=== PATIENT | male | born 1985 | race Caucasian/White ===

== ENCOUNTER 2021-10-14 22:54 | Emergency (ER) | payer SELFPAY ==
[~2021-10-14] VITALS: Ht 170.2 cm; Wt 82.2 kg
[~2021-10-14 22:54] MED LIST: AMOXICILLIN875 MG PO; BACTRIM DS1 TAB PO; GENTAMICIN15 ML/BTL OP; KEFLEX250 MG PO; LORTAB 10 PO; LORTAB5 PO; NAPROSYN375 MG PO; NO CURRENT MEDS; SEPTRA DS1 TAB OR; ULTRAM50 M1 PO; VANCOMYCIN HCL1 GM IV
[2021-10-14 23:32] LABS: IMMATURE GRANULOCYTES 0.1 % (0.0-5.0); MEAN CELL VOLUME 86.8 fL CALC (80.0-100.0); MEAN CORPUSCULAR HGB 28.5 pG CALC (26.0-32.0); MEAN CORPUSCULAR HGB CONC 32.9 g/dL CAL (32.0-36.0); NEUT# 3.29 thou/uL (1.82-7.42); RED BLOOD COUNT 5.01 mill/uL (4.70-6.10); RED CELL DISTRI WIDTH 13.3 % (11.5-15.5)
[2021-10-14 23:33] LABS: HEMATOCRIT 43.5 % (39.0-50.0); HEMOGLOBIN 14.3 g/dl (14.0-18.0)
[2021-10-14 23:47] LABS: ANION GAP 13 (6-22 (CALC)); BUN 18 mg/dL (9-20); BUN/CREATININE RATIO 16 (12-20 (CALC)); CARBON DIOXIDE 25 mmol/l (22-30); CHLORIDE 106 mmol/l (95-108); CREATININE 1.1 mg/dL (0.7-1.3); GFR FOR AFR.AMER. > 60 ML/MIN (>=60 (CALC)); GFR OTHER RACES > 60 ML/MIN (>=60 (CALC)); POTASSIUM 3.9 mmol/l (3.5-5.1); SGOT/AST 39 u/l (17-59); SODIUM 141 mmol/l (137-146); TOTAL PROTEIN 7.8 g/dL (6.3-8.2)
[2021-10-15 00:14] LABS: ALBUMIN 4.3 g/dL (3.2-5.0); ALKALINE PHOSPHATASE 64 u/l (38-126); BILIRUBIN, TOTAL 0.5 mg/dL (0.0-1.4)
[2021-10-15] MEDS ORDERED: AMOXICILLIN500 MG PO (01:16)
[2021-10-15] MEDS ORDERED: ULTRAM50 M1 PO (01:16)
[2021-10-15 02:06] VITALS: BP 131/86
[2021-10-16] MEDS ORDERED: HYDROCO/APAP1 TA9 PO (13:06)
[2021-10-17] MEDS ORDERED: HYDROCO/APAP1 TA9 PO (10:29)
== END 2021-10-15 02:06 | disposition home or self-care (01) | DRG 605 ==
LOC: ED 22:54
PROVIDERS: Emergency Medicine
PROC: 0HQKXZZ Repair Right Lower Leg Skin, External Approach (ICD-10-PCS; principal; 2021-10-15)
DX: S81.811A Laceration without foreign body, right lower leg, initial encounter (principal); S43.401A Unspecified sprain of right shoulder joint, initial encounter; S00.83XA Contusion of other part of head, initial encounter; F17.210 Nicotine dependence, cigarettes, uncomplicated; V13.4XXA Pedal cycle driver injured in collision with car, pick-up truck or van in traffic accident, initial encounter; Y93.55 Activity, bike riding

== ENCOUNTER 2021-10-16 11:14 | Emergency (ER) | payer SELFPAY ==
[~2021-10-16] VITALS: Ht 185.4 cm; Wt 81.8 kg
[~2021-10-16 11:14] MED LIST changes: +AMOXICILLIN500 MG PO
[2021-10-16 11:51] VITALS: BP 142/82
[2021-10-16] MEDS ORDERED: HYDROCO/APAP1 TA9 PO (13:06)
[2021-10-17] MEDS ORDERED: HYDROCO/APAP1 TA9 PO (10:29)
== END 2021-10-16 14:04 | disposition home or self-care (01) | DRG 950 ==
LOC: ED 11:14
DX: S81.811D Laceration without foreign body, right lower leg, subsequent encounter (principal); X58.XXXD Exposure to other specified factors, subsequent encounter; F17.200 Nicotine dependence, unspecified, uncomplicated

== ENCOUNTER 2021-10-24 13:40 | Emergency (ER) | payer SELFPAY ==
[~2021-10-24] VITALS: Ht 185.4 cm; Wt 80.0 kg
[~2021-10-24 13:40] MED LIST changes: +HYDROCO/APAP1 TA9 PO
[2021-10-24] MEDS ORDERED: CEPHALEXIN500 M1 PO ×2 (14:13→14:53)
[2021-10-24] MEDS ORDERED: BACTRIM DS1 TAB PO (14:13)
[2021-10-24] MEDS ORDERED: HYDROCO/APAP1 TA9 PO ×2 (14:13→14:53)
[2021-10-24 14:37] VITALS: BP 145/76
== END 2021-10-24 15:10 | disposition home or self-care (01) | DRG 950 ==
LOC: ED 13:40
DX: S81.811D Laceration without foreign body, right lower leg, subsequent encounter (principal); X58.XXXD Exposure to other specified factors, subsequent encounter; F17.200 Nicotine dependence, unspecified, uncomplicated

== ENCOUNTER 2022-07-08 10:58 | Emergency (ER) | payer SELFPAY ==
[~2022-07-08] VITALS: Ht 185.4 cm; Wt 83.9 kg
[~2022-07-08 10:58] MED LIST changes: +CEPHALEXIN500 M1 PO
[2022-07-08 11:06] VITALS: BP 146/86
[2022-07-08 11:15] VITALS: BP 145/88
[2022-07-08 11:30] VITALS: BP 145/92
[2022-07-08 13:30] VITALS: BP 145/92
== END 2022-07-08 13:31 | disposition home or self-care (01) | DRG 313 ==
LOC: ED 10:58
DX: R07.89 Other chest pain (principal); M25.512 Pain in left shoulder; F17.200 Nicotine dependence, unspecified, uncomplicated

== ENCOUNTER 2023-08-05 23:08 | Emergency (ER) | payer OTHER ==
[~2023-08-05] VITALS: Ht 180.3 cm; Wt 81.6 kg
[2023-08-05] MEDS ORDERED: SODIUM CHLORIDE 0.9% 1,000 ML IV ONE (23:35)
[2023-08-05] MEDS ORDERED: IBUPROFEN 600 MG/TAB PO ONE (23:35)
[2023-08-05] MEDS ORDERED: ACETAMINOPHEN 500 MG TAB PO ONE (23:35)
[2023-08-05] MEDS ORDERED: PROMETHAZINE HCL 25 MG/ML AMP IV ONE (23:35)
[2023-08-05 23:53] VITALS: BP 125/57
== END 2023-08-05 23:54 | disposition left against medical advice (07) | DRG 864 ==
LOC: ED 23:08
DX: R50.9 Fever, unspecified (principal); R52 Pain, unspecified; R11.0 Nausea; F17.200 Nicotine dependence, unspecified, uncomplicated; Z53.29 Procedure and treatment not carried out because of patient's decision for other reasons

== ENCOUNTER 2023-09-25 09:57 | Emergency (ER) | payer SELFPAY ==
[~2023-09-25] VITALS: Ht 180.3 cm; Wt 80.7 kg
[2023-09-25 10:01] VITALS: BP 126/90
[2023-09-25 10:15] VITALS: BP 131/91
[2023-09-25] MEDS ORDERED: Diph, Acellular Pertussis, Tet 0.5 ML/VIAL (Tdap) SDV IM ONE (10:15)
[2023-09-25] MEDS ORDERED: KEFLEX500 MG PO (10:21)
[2023-09-25] MEDS ORDERED: LIDOCAINE 4 % PATCH TD ONE (10:30)
[2023-09-25] MEDS ORDERED: KETOROLAC TROMETHAMINE 30 MG/ML SDV IM ONE (10:30)
[2023-09-25 10:42] VITALS: BP 131/91
== END 2023-09-25 10:56 | disposition home or self-care (01) | DRG 914 ==
LOC: ED 09:57
DX: S91.342A Puncture wound with foreign body, left foot, initial encounter (principal); W26.8XXA Contact with other sharp object(s), not elsewhere classified, initial encounter; T14.8XXA Other injury of unspecified body region, initial encounter; W57.XXXA Bitten or stung by nonvenomous insect and other nonvenomous arthropods, initial encounter; F17.210 Nicotine dependence, cigarettes, uncomplicated; Z59.00 Homelessness unspecified